=== PATIENT | male | born 1975 | race Caucasian/White ===

== ENCOUNTER 2019-01-26 19:40 | Emergency (ER) | payer SELFPAY ==
[~2019-01-26] VITALS: Ht 180.3 cm; Wt 88.5 kg
--- NOTE | 2019-01-26 19:48 | NUR ---
IRA FROM THE STREETS FOR ETOH; PT VERBALLY RESPONSIVE, PT ON MONITOR, VSS, NAD NOTED, PENDING MD SHULTZ
--- NOTE | 2019-01-26 23:10 | NUR ---
BLOOD DRAWN AND SENT TO LAB
[2019-01-26 23:37] LABS: BASOPHILS # (AUTO) 0.1 /CMM (0.0-0.2); BASOPHILS % (AUTO) 0.9 % (0.0-2.0); EOSINOPHILS % (AUTO) 0.7 % (0.0-6.0); HEMOGLOBIN 14.5 g/dL (13.5-17.5); LYMPHOCYTES # (AUTO) 3.3 /CMM (0.8-4.8); NEUTROPHILS # (AUTO) 2.8 /CMM (1.8-8.9); WHITE BLOOD COUNT (AUTO) 6.6 K/uL (4.3-11.0)
[2019-01-26 23:40] LABS: HEMATOCRIT 43 % (39-51); LYMPHOCYTES % (AUTO) 50.4 % (20.0-44.0); MEAN CORPUSCULAR HGB CONC 34 g/dl (31.0-36.0); MEAN CORPUSCULAR VOLUME 88 fL (80-96); MONOCYTES # (AUTO) 0.3 /CMM (0.1-1.30); MONOCYTES % (AUTO) 5.3 % (2.0-12.0); NEUTROPHILS % (AUTO) 42.7 % (43.0-81.0); PLATELET COUNT (AUTO) 255 /CMM (150-450); RED BLOOD CELL COUNT(AUTO) 4.85 MIL/uL (4.5-6.0)
[2019-01-26 23:45] LABS: CALCIUM, SERUM 8.4 mg/dL (8.5-10.1); CREATININE 0.8 mg/dL (0.6-1.3); POTASSIUM 3.8 mmol/L (3.5-5.1)
[2019-01-27 00:02] LABS: ALBUMIN 4.3 g/dL (3.4-5.0); BILIRUBIN,DIRECT 0.1 mg/dL (0.0-0.2); BILIRUBIN,TOTAL 0.3 mg/dL (0.2-1.0); SALICYLATE 5.6 mg/dL (2.8-20.0); TOTAL PROTEIN, SERUM 8.2 g/dL (6.4-8.2)
--- NOTE | 2019-01-27 01:06 | NUR ---
URINE COLLECTED AND SENT TO LAB
[2019-01-27 01:08] LABS: APPEARANCE,URINE Clear (CLEAR); BILIRUBIN,URINE Negative (NEGATIVE); BLOOD, URINE Negative Ery/uL (NEGATIVE); COLOR,URINE Yellow (YELLOW); KETONES,URINE Negative (NEGATIVE); LEUKOCYTE ESTERASE ,URINE Negative (NEGATIVE); NITRITE, URINE Negative (NEGATIVE); PH,URINE 5.5 (5.0-8.0); PROTEIN,URINE Negative (NEGATIVE); UGLUCOSE Negative (NEGATIVE); UROBILINOGEN,URINE 0.2 EU/dL (0.2)
--- NOTE | 2019-01-27 02:00 | NUR ---
ASSUMED CARE OF PT. PT RESTING WITH NO S/S OF DISTRESS NOTED
--- NOTE | 2019-01-27 04:41 | NUR ---
Patient is resting comfortably in bed with eyes closed. Easily aroused. VSS
--- NOTE | 2019-01-27 06:14 | NUR ---
Patient discharged to home in stable condition. Written and verbal after care instructions given. Patient verbalizes understanding of instruction. PT IS AAOX4. PT AMBULATED OUT WITH STEADY GAIT NOTED. NO S/S OF DISTRESS NOTED UPON DISCHARGE
[2019-01-27 06:15] VITALS: BP 118/69
== END 2019-01-27 06:15 | disposition home or self-care (01) ==
LOC: EDBD → MERGE 23:40 → ER 23:40
DX: F10.129 Alcohol abuse with intoxication, unspecified (principal); R40.4 Transient alteration of awareness; Y90.8 Blood alcohol level of 240 mg/100 ml or more
CPT/HCPCS: 36415; 70450; 80048; 80076; 80305; 80307; 80329; 81001; 85025; 99284; G0480; 81000-TC

== ENCOUNTER 2019-01-29 08:06 | Emergency (ER) | payer BC, OTHER ==
[~2019-01-29] VITALS: Ht 180.3 cm; Wt 83.9 kg
--- NOTE | 2019-01-29 08:20 | NUR ---
NICOLE FROM A [employer], PER REPORT WENT IN AND LAY ON THE FLOOR. PATIENT KEPT COMFORTABLE, SAFETY PRECAUTION OBSERVED.
[2019-01-29 08:47] LABS: BASOPHILS # (AUTO) 0.1 /CMM (0.0-0.2); EOSINOPHILS % (AUTO) 0.4 % (0.0-6.0); HEMATOCRIT 41 % (39-51); LYMPHOCYTES # (AUTO) 3.1 /CMM (0.8-4.8); LYMPHOCYTES % (AUTO) 37.3 % (20.0-44.0); MEAN CORPUSCULAR HGB CONC 34 g/dl (31.0-36.0); MEAN CORPUSCULAR VOLUME 87 fL (80-96); MONOCYTES # (AUTO) 0.6 /CMM (0.1-1.30); NEUTROPHILS # (AUTO) 4.5 /CMM (1.8-8.9); NEUTROPHILS % (AUTO) 54.3 % (43.0-81.0); PLATELET COUNT (AUTO) 239 /CMM (150-450); RED BLOOD CELL COUNT(AUTO) 4.76 MIL/uL (4.5-6.0); WHITE BLOOD COUNT (AUTO) 8.2 K/uL (4.3-11.0)
--- NOTE | 2019-01-29 08:50 | NUR ---
SSD DAMIEN AT BEDSIDE, PATIENT ALTERED AT THIS TIME, WILL COME BACK LATER.
[2019-01-29 08:54] LABS: CALCIUM, SERUM 8.4 mg/dL (8.5-10.1); CREATININE 0.7 mg/dL (0.6-1.3); POTASSIUM 3.6 mmol/L (3.5-5.1)
--- NOTE | 2019-01-29 09:50 | NUR ---
PIV REMOVED, A/OX2-3 BREATHING EVEN AND UNLABORED. INSISTING ON LEAVING AMA.
--- NOTE | 2019-01-29 09:52 | NUR ---
PATIENT LEFT AMA, EXPLAINED RISKS, BENEFITS AND ALTERNATIVE. REFUSED SSD CONSULT AND FURTHER TREATMENT, MD AWARE. PATIENT ABLE TO AMBULATE INDEPENDENTLY WITH STEADY GAIT. Addendum: 01/29/19 at 1000 by ROALCANCES REFUSED TO SIGN HOMELESS WAIVER FORM, TRANSPORTATION AND FOOD, JUST ASKED FOR WATER AND WATER PROVIDED. PATIENT LEFT KAYE.
[2019-01-29 09:59] VITALS: BP 122/80
== END 2019-01-29 10:04 | disposition left against medical advice (07) ==
LOC: ER 08:08 → MERGE 08:08 → EDBD 08:08 → ER 10:04
DX: G31.2 Degeneration of nervous system due to alcohol (principal); Z59.0 Homelessness
CPT/HCPCS: 36415; 80048-TC; 85025-TC; G0480

== ENCOUNTER 2019-02-01 16:32 | Emergency (ER) | payer BC, OTHER ==
[~2019-02-01] VITALS: Ht 188 cm; Wt 79.4 kg
[2019-02-01 17:48] VITALS: BP 127/83
--- NOTE | 2019-02-01 17:50 | NUR ---
PT ELOPED FROM ED.
[2019-02-01] MEDS ORDERED: ONDANSETRON HCL/PF 4 MG/2 ML VIAL IV ONE (18:00)
[2019-02-01] MEDS ORDERED: IV NS 0.9% 1,000 ML BAG IV ONE (18:00)
== END 2019-02-01 17:52 | disposition left against medical advice (07) ==
LOC: ER 16:32
DX: G92 Toxic encephalopathy (principal); F32.9 Major depressive disorder, single episode, unspecified; F41.9 Anxiety disorder, unspecified; Z98.890 Other specified postprocedural states